=== PATIENT | female | born 1980 | race Caucasian/White ===

== ENCOUNTER 2018-08-31 15:59 | Emergency (ER) | payer BC ==
[~2018-08-31] VITALS: Ht 165.1 cm; Wt 61.7 kg
[2018-08-31] MEDS ORDERED: LEVO75TA7 PO (16:13)
[2018-08-31] MEDS ORDERED: DICYCLOMINE HCL 20 MG TABLET PO STA (17:02)
[2018-08-31] MEDS ORDERED: DICYCLOMINE HCL LIQ 10 MG/5 ML UDC ONE (17:11)
--- NOTE | 2018-08-31 17:34 | NUR ---
Patient discharged to home in stable conditon. Written and verbal after care instructions given. Patient verbalizes understanding of instructions.
== END 2018-08-31 17:35 | disposition home or self-care (01) ==
LOC: ER 15:59
DX: R10.13 Epigastric pain (principal); R11.2 Nausea with vomiting, unspecified; R10.11 Right upper quadrant pain; E03.9 Hypothyroidism, unspecified; Z88.0 Allergy status to penicillin; Z88.2 Allergy status to sulfonamides; Z79.899 Other long term (current) drug therapy
CPT/HCPCS: A4663